=== PATIENT | female | born 1980 | race Caucasian/White ===

== ENCOUNTER 2019-01-31 20:13 | Observation (INO) | payer BC ==
[~2019-01-31] VITALS: Ht 160 cm; Wt 97.1 kg
[~2019-01-31 20:13] MED LIST: ANUCORT HC25 MG REC; DARVOCET-N-101 UDTAB PO; LORTAB 5/500 501 TAB PO; NO HOME MEDICATIONS
[2019-01-31 20:47] LABS: BASO % 0.5 % (0.0-2.0); EOS # 0.1 (0.0-0.7); EOS % 2.1 % (0-4.0); GRAN # 3.4 (1.4-6.5); GRAN % 53.5 % (42.2-75.2); HEMOGLOBIN 14.3 g/dl (12.5-16.0); LYMPH # 2.3 (1.2-3.4); LYMPH % 36.7 % (20.0-51.0); MEAN CELL VOLUME 85 fl (80.0-100.0); MEAN CORPUSCULAR HEMOGLOBIN 28 pg (27.0-31.0); MEAN CORPUSCULAR HGB CONC 33 g/dl (33.0-37.0); MEAN PLATELET VOLUME 10.6 fl (7.4-10.4); MONO # 0.4 (0.1-0.6); PLATELET COUNT 214 K/mm3 (130-400); RED BLOOD COUNT 5.07 M/mm3 (4.10-5.30); REDCELL DISTRIBUTION WIDTH-CV 12.4 % (11.5-14.5)
[2019-01-31 20:53] LABS: ALANINE AMINOTRANSFERASE 35 U/L (9-52); ALBUMIN 4.2 gm/dL (3.5-5.0); ALKALINE PHOSPHATASE 85 U/L (50-136); ANION GAP 9 mmol/L (7-16); AST,SGOT 28 U/L (15-37); BILIRUBIN,TOTAL 0.2 mg/dL (0.0-1.0); BLOOD UREA NITROGEN 16 mg/dL (7-17); CALCIUM 9.1 mg/dL (8.4-10.2); CARBON DIOXIDE 24 mmol/L (22-30); CHLORIDE 106 mmol/L (98-107); CREATININE, serum 0.56 mg/dL (0.52-1.25); GLUCOSE 150 mg/dL (74-106); LIPASE 252 U/L (23-300); POTASSIUM 4.2 mmol/L (3.4-5.0); SODIUM 139 mmol/L (137-145); TOTAL PROTEIN 7.6 gm/dL (6.4-8.2)
[2019-01-31 21:05] LABS: TROPONIN-I < 0.012 ng/mL (0.000-0.035)
[2019-01-31 22:28] LABS: INR 0.8 (0.8-3.0); PROTHROMBIN TIME 9.6 SECONDS (9.7-12.8)
[2019-01-31 22:31] LABS: PARTIAL THROMBOPLASTIN TIME 29.9 SECONDS (26.0-37.0)
[2019-02-01] VITALS (711 sets, daily range): BP systolic 104–131; BP diastolic 59–93; PULSE 65–80; TEMP 97.7–97.9; O2SAT 89–99
[2019-02-01] MEDS ORDERED: FORT1000TA PO (01:24)
[2019-02-01] MEDS ORDERED: NOVOLOG 100U100 U/M1 SQ (01:25)
[2019-02-01] MEDS ORDERED: LANTUS100 U/ML SQ (01:26)
[2019-02-01] MEDS ORDERED: LIPITOR 10MG10 MG PO (01:26)
[2019-02-01] MEDS ORDERED: NEURONTIN300 MG/CAP PO (01:27)
[2019-02-01] MEDS ORDERED: JANUVIA 100MG100 MG PO (01:28)
[2019-02-01] MEDS ORDERED: PRINIVIL5 MG PO (01:29)
[2019-02-01 02:31] LABS: CHOLESTEROL 181 mg/dL (120-200); CHOLESTEROL RISK RATIO 6.4; HDL CHOLESTEROL 28 mg/dL; LDL CHOLESTEROL 117 mg/dL; MAGNESIUM 1.8 mg/dL (1.6-2.3); TRIGLYCERIDE 178 mg/dL
[2019-02-01 02:46] LABS: TROPONIN-I < 0.012 ng/mL (0.000-0.035)
[2019-02-01 02:53] LABS: COLLECTION METHOD CLEAN CATCH
[2019-02-01 03:11] LABS: MUCOUS Present /lpf; PH 5 (5-8); URINE APPEARANCE Clear; URINE BACTERIA None Seen /hpf; URINE BILIRUBIN Negative (NEGATIVE); URINE BLOOD Negative (NEGATIVE); URINE COLOR Yellow; URINE GLUCOSE 1+ (NEGATIVE); URINE KETONE Negative (NEGATIVE); URINE LEUKOCYTE ESTERASE Negative (NEGATIVE); URINE NITRATE Negative (NEGATIVE); URINE PROTEIN(semi-quant) Negative (NEGATIVE); URINE RBC 0-2 /hpf
[2019-02-01 06:08] LABS: BASO % 0.6 % (0.0-2.0); EOS # 0.1 (0.0-0.7); EOS % 2.3 % (0-4.0); GRAN # 2.1 (1.4-6.5); GRAN % 39.1 % (42.2-75.2); HEMATOCRIT 38.3 % (37.0-47.0); HEMOGLOBIN 12.5 g/dl (12.5-16.0); LYMPH # 2.7 (1.2-3.4); LYMPH % 51.1 % (20.0-51.0); MEAN CELL VOLUME 86 fl (80.0-100.0); MEAN CORPUSCULAR HEMOGLOBIN 28 pg (27.0-31.0); MEAN CORPUSCULAR HGB CONC 33 g/dl (33.0-37.0); MEAN PLATELET VOLUME 10.8 fl (7.4-10.4); MONO # 0.4 (0.1-0.6); MONO % 6.7 % (1.7-9.3); PLATELET COUNT 183 K/mm3 (130-400); RED BLOOD COUNT 4.44 M/mm3 (4.10-5.30); REDCELL DISTRIBUTION WIDTH-CV 12.5 % (11.5-14.5)
[2019-02-01 07:01] LABS: CALCIUM 8.3 mg/dL (8.4-10.2); CREATININE, serum 0.49 mg/dL (0.52-1.25); POTASSIUM 3.7 mmol/L (3.4-5.0)
--- NOTE | 2019-02-01 07:15 | NUR ---
Bedside report received from JENNIFER Wang. Care of patient assumed at this time.
--- NOTE | 2019-02-01 07:55 | NUR ---
Patient assessment complete. Patient resting in bed, sleeping when this nurse enters room. Upon waking patient states she isn't having chest pain, but some "tightness." Nitro drip at 5 mcg/min, this nurse increases rate to 10 mcg/min based on patient report of pain at 5/10. Patient is alert and oriented after waking, denies any shortness of breath. Tech at bedside to complete echo. Will continue to monitor.
--- NOTE | 2019-02-01 12:09 | NUR ---
Patient taken to stress test by wheelchair.
--- NOTE | 2019-02-01 13:17 | NUR ---
Patient returns from stress test.
--- NOTE | 2019-02-01 13:20 | NUR ---
Patient resting in bed. Denies chest pain or shortness of breath. States she is not hungry. No concerns at this time.
[2019-02-01] MEDS ORDERED: NAPROXEN 3375 MG/TAB PO (15:05)
--- NOTE | 2019-02-01 16:39 | NUR ---
PREETI lam met with the patient to discuss discharge plan. The patient lives alone in [place] but states her brother lives nearby. The patient does not use any DME and reports independence with ADLs. The patient receives primary care services from [facility] and receives her medications from the [facility]. The patient states that she sometimes has difficulties affording her medications but receieves assistance through the [facility]. The patient did not have a DPOA-HC completed but was interested in completing one while at the hospital. PREETI lam presented and explained the DPOA-HC. PREETI lam and RN, Carmen, witnessed the patient sign. The patient designates her brother, Ashkan. PREETI lam put a copy in the patient's chart and gave the original and 3 copies to the patient. No additional needs at this time. The patient is to discharge today, 02/01, back home in [place].
--- NOTE | 2019-02-01 16:45 | NUR ---
Discharge information reviewed with patient. Patient verbalizes understanding and agreement. All patient questions asked and answered to satisfaction. Patient denies shortness of breath or chest pain. No concerns at this time. All patient belongings transported with patient. Patient taken by wheelchair to exit at this time.
== END 2019-02-01 16:53 | disposition home or self-care (01) ==
LOC: COL.ER 20:13 → ICU 22:19
PROVIDERS: Emergency Medicine; Nurse Practitioner Family
DX: R07.89 Other chest pain (principal); E78.5 Hyperlipidemia, unspecified; I10 Essential (primary) hypertension; E11.40 Type 2 diabetes mellitus with diabetic neuropathy, unspecified; E66.9 Obesity, unspecified; G47.33 Obstructive sleep apnea (adult) (pediatric); Z90.49 Acquired absence of other specified parts of digestive tract; Z98.84 Bariatric surgery status; Z79.4 Long term (current) use of insulin; Z87.891 Personal history of nicotine dependence; Z82.49 Family history of ischemic heart disease and other diseases of the circulatory system; Z83.3 Family history of diabetes mellitus; Z88.1 Allergy status to other antibiotic agents; Z88.5 Allergy status to narcotic agent; Z88.6 Allergy status to analgesic agent; Z91.040 Latex allergy status; Z79.82 Long term (current) use of aspirin
CPT/HCPCS: A9500; G0378; J1644; J1650; J7030; Q9967

== ENCOUNTER 2019-07-20 17:58 | Inpatient (IN) | payer BC ==
[~2019-07-20] VITALS: Ht 160 cm; Wt 101.5 kg
[~2019-07-20 17:58] MED LIST changes: +FORT1000TA PO; +JANUVIA 100MG100 MG PO; +LANTUS100 U/ML SQ; +LIPITOR 10MG10 MG PO; +NAPROXEN 3375 MG/TAB PO; +NEURONTIN300 MG/CAP PO; +NOVOLOG 100U100 U/M1 SQ; +PRINIVIL5 MG PO
[2019-07-20 18:35] LABS: BASO % 0.5 % (0.0-2.0); EOS # 0.1 (0.0-0.7); EOS % 1.2 % (0-4.0); GRAN # 3.7 (1.4-6.5); HEMATOCRIT 41.9 % (37.0-47.0); HEMOGLOBIN 13.9 g/dl (12.5-16.0); LYMPH # 2.3 (1.2-3.4); LYMPH % 35.3 % (20.0-51.0); MEAN CELL VOLUME 84 fl (80.0-100.0); MEAN CORPUSCULAR HEMOGLOBIN 28 pg (27.0-31.0); MEAN CORPUSCULAR HGB CONC 33 g/dl (33.0-37.0); MEAN PLATELET VOLUME 10.7 fl (7.4-10.4); MONO # 0.4 (0.1-0.6); MONO % 5.7 % (1.7-9.3); PLATELET COUNT 235 K/mm3 (130-400); RED BLOOD COUNT 5.01 M/mm3 (4.10-5.30)
[2019-07-20 18:47] LABS: ALANINE AMINOTRANSFERASE 36 U/L (9-52); ALBUMIN 4.5 gm/dL (3.5-5.0); ALKALINE PHOSPHATASE 103 U/L (50-136); ANION GAP 14 mmol/L (7-16); AST,SGOT 37 U/L (15-37); BILIRUBIN,TOTAL 0.6 mg/dL (0.0-1.0); BLOOD UREA NITROGEN 10 mg/dL (7-17); CALCIUM 9.1 mg/dL (8.4-10.2); CARBON DIOXIDE 22 mmol/L (22-30); CHLORIDE 105 mmol/L (98-107); CREATININE, serum 0.42 (0.52-1.25); GLUCOSE 160 mg/dL (74-106); POTASSIUM 3.7 mmol/L (3.4-5.0); SODIUM 141 mmol/L (137-145); TOTAL PROTEIN 7.8 gm/dL (6.4-8.2)
[2019-07-20 19:03] LABS: TROPONIN-I < 0.012 ng/mL (0.000-0.035)
[2019-07-20] MEDS ORDERED: IMDUR 30MG30 MG/TAB PO (20:58)
[2019-07-20] MEDS ORDERED: ASPIRIN 81M81 MG/TA2 PO (21:38)
[2019-07-20] MEDS ORDERED: GLUCOPHAGE1000 MG PO (21:40)
[2019-07-20 22:09] VITALS: BP 124/90; PULSE 72; TEMP 97.5
[2019-07-20 22:15] VITALS: BP 124/90; PULSE 76; TEMP 97.5
[2019-07-21] VITALS (13 sets, daily range): BP systolic 97–135; BP diastolic 61–89; PULSE 67–85; TEMP 97.7–98.5
--- NOTE | 2019-07-21 00:07 | NUR ---
Admiyyed to medical floor from ER- VSS, states no chest pain at this time- IV fluids at 125cc/hr, NPO after MN for ? heart cath in am
--- NOTE | 2019-07-21 05:41 | NUR ---
Quiet night- no chest pain, VSS
[2019-07-21 06:12] LABS: BASO % 0.7 % (0.0-2.0); EOS # 0.1 (0.0-0.7); GRAN # 2.4 (1.4-6.5); GRAN % 53.3 % (42.2-75.2); HEMATOCRIT 38.9 % (37.0-47.0); HEMOGLOBIN 12.7 g/dl (12.5-16.0); LYMPH # 1.6 (1.2-3.4); LYMPH % 35.8 % (20.0-51.0); MEAN CELL VOLUME 85 fl (80.0-100.0); MEAN CORPUSCULAR HEMOGLOBIN 28 pg (27.0-31.0); MEAN CORPUSCULAR HGB CONC 33 g/dl (33.0-37.0); MEAN PLATELET VOLUME 10.8 fl (7.4-10.4); MONO # 0.4 (0.1-0.6); PLATELET COUNT 196 K/mm3 (130-400); RED BLOOD COUNT 4.59 M/mm3 (4.10-5.30)
[2019-07-21 06:23] LABS: CALCIUM 8.4 mg/dL (8.4-10.2); CHOLESTEROL RISK RATIO 8.8; CREATININE, serum 0.36 (0.52-1.25); POTASSIUM 3.6 mmol/L (3.4-5.0)
--- NOTE | 2019-07-21 08:00 | NUR ---
PATIENT IS RESTING IN BED THIS MORNING. PATIENT IS A&OX4. VSS. TELE IN PLACE. BOWEL SOUNDS ACTIVE ALL FOUR QUADRANTS. PATIENT IS NPO FOR A PROCEDURE. PATIENT DENIES COMPLAINTS OF N/V. POSITIVE PEDAL PULSES EQUAL BILATERALLY. IV FLUIDS INFUSING TO RIGHT HAND IV VIA PUMP. PATIENT DENIES ANY PAIN. CALL LIGHT WITHIN REACH. NO OTHER NEEDS AT THIS TIME.
--- NOTE | 2019-07-21 11:50 | NUR ---
PATIENT CONSENT FOR CARDIAC CATH PROCEDURE SIGNED AND ON PATIENT CHART.
--- NOTE | 2019-07-21 12:30 | NUR ---
PATIENT TAKEN TO POWDER LINE REPAIRER VIA BED. WILL WAIT FOR PATIENT ARRIVAL BACK TO ROOM 311.
--- NOTE | 2019-07-21 12:49 | NUR ---
SEE MERGE DOCUMENTATION FOR MEDICATION ADMINISTRATION TIMES AND INTRA/POST PROCEDURE SEDATION ASSESSMENTS.
--- NOTE | 2019-07-21 13:50 | NUR ---
PATIENT ARRIVED BACK TO ROOM 311 VIA BED FROM CARDIAC CATH. PATIENT IS A&OX4. POST-OP VSS. RIGHT RADIAL TR BAND AND IMMOBILIZER IN PLACE. RIGHT RADIAL PUNCTURE SITE BENEATH TR BAND DRESSING IS CD&I. POSITIVE RADIAL PULSES EQUAL BILATERALLY. PATIENT ON BEDREST. PATIENT DENIES ANY NEEDS AT THIS TIME.
--- NOTE | 2019-07-21 14:35 | NUR ---
PATIENT'S RIGHT HAND TO INT. POST-OP VSS. PATIENT'S BEDREST TIME COMPLETE. PATIENT ASSISTED TO THE BATHROOM. PATIENT STEADY ON FEET. PATIENT DENIES ANY OTHER NEEDS AT THIS TIME.
--- NOTE | 2019-07-21 15:35 | NUR ---
3 MLS OF AIR RELEASED FROM TR BAND. NO BLEEDING AT PUNCTURE SITE. WILL CONTINUE TO MONITOR.
--- NOTE | 2019-07-21 16:05 | NUR ---
5 MLS OF AIR RELEASED FROM TR BAND. NO BLEEDING AT PUNCTURE SITE. WILL CONTINUE TO MONITOR.
--- NOTE | 2019-07-21 16:35 | NUR ---
REMAINING 5 MLS OF AIR RELEASED FROM TR BAND. NO BLEEDING AT PUNCTURE SITE. WILL CONTINUE TO MONITOR.
--- NOTE | 2019-07-21 16:43 | NUR ---
SW attended clinical rounds to discuss discharge planning. Patient will likely discharge later this afternoon. Patient lives independently at home alone and work as an credit assistant to [employer]. Patient reports she has family support from her brother and sister. Patient receives primary care from the [facility] in . Patient reports she obtains medications from [facility] as well as [facility]. Patient denies difficulties obtaining medications. Patient's DPOA is her brother and copy is in the EMR. No discharge needs at this time.
--- NOTE | 2019-07-21 17:35 | NUR ---
PATIENT IS EATING, DRINKING AND VOIDING. POST-OP VITAL SIGNS STABLE. PATIENT'S RIGHT HAND INT DISCONTINUED PER PENDING DISCHARGE. TIP INTACT. PATIENT TOLERATED WELL. TR BAND REMOVED. BANDAID IN PLACE. WRIST IMMOBILIZER IN PLACE.
--- NOTE | 2019-07-21 18:35 | NUR ---
DISCHARGE INSTRUCTIONS REVIEWED WITH PATIENT AND . ALL QUESTIONS ANSWERED. PATIENT PERSONAL BELONGINGS GATHERED. PATIENT AMBULATED TO PERSONAL VEHICLE WITH MEDICAL STAFF. PATIENT DISCHARGED.
== END 2019-07-21 18:35 | disposition home or self-care (01) | DRG 287 ==
LOC: COL.ER 17:58 → MEDICAL 20:00
PROVIDERS: Emergency Medicine; ADMIT Hospitalist
PROC: 4A023N7 Measurement of Cardiac Sampling and Pressure, Left Heart, Percutaneous Approach (ICD-10-PCS; principal; 2019-07-21)
PROC: B2111ZZ Fluoroscopy of Multiple Coronary Arteries using Low Osmolar Contrast (ICD-10-PCS; 2019-07-21)
PROC: B2151ZZ Fluoroscopy of Left Heart using Low Osmolar Contrast (ICD-10-PCS; 2019-07-21)
DX: I25.119 Atherosclerotic heart disease of native coronary artery with unspecified angina pectoris (principal); E11.40 Type 2 diabetes mellitus with diabetic neuropathy, unspecified; I10 Essential (primary) hypertension; E78.5 Hyperlipidemia, unspecified; Z88.5 Allergy status to narcotic agent; Z88.6 Allergy status to analgesic agent; Z88.1 Allergy status to other antibiotic agents; Z91.040 Latex allergy status; E66.9 Obesity, unspecified; Z68.39 Body mass index [BMI] 39.0-39.9, adult; Z98.84 Bariatric surgery status; Z87.891 Personal history of nicotine dependence; G47.33 Obstructive sleep apnea (adult) (pediatric)
CPT/HCPCS: G0378; J1644; J2250; J7030; Q9967

== ENCOUNTER → 2019-09-20 | Outpatient (CLI) | payer BC ==
[~2019-09-20] MED LIST changes: +ASPIRIN 81M81 MG/TA2 PO; +GLUCOPHAGE1000 MG PO; +IMDUR 30MG30 MG/TAB PO
== END ==
LOC: COL.RAD 09:37
DX: R10.2 Pelvic and perineal pain (principal)

== ENCOUNTER → 2019-10-27 | Outpatient (CLI) | payer BC | LOC: COL.RAD 16:49 | DX: Z01.818 Encounter for other preprocedural examination (principal) ==

== ENCOUNTER → 2020-03-13 | Outpatient (CLI) | payer BC | LOC: ZCOL.LAB 10:38 | DX: Z20.828 Contact with and (suspected) exposure to other viral communicable diseases (principal) ==

== ENCOUNTER → 2020-07-08 | Outpatient (CLI) | payer BC | LOC: MC.RAD 06-27 13:15 | DX: Z12.31 Encounter for screening mammogram for malignant neoplasm of breast (principal) ==

== ENCOUNTER → 2020-08-08 | Outpatient (CLI) | payer BC | LOC: COL.RAD 08:05 | DX: Z01.812 Encounter for preprocedural laboratory examination (principal); R90.82 White matter disease, unspecified; R51 Headache; R20.0 Anesthesia of skin | CPT/HCPCS: A9585 ==

== ENCOUNTER 2020-08-21 08:03 | Outpatient (CLI) | payer BC ==
[~2020-08-21] VITALS: Ht 160 cm; Wt 88.7 kg
[~2020-08-21 08:03] MED LIST changes: +CRESTOR40 MG PO; +NITROSTAT0.4 MG/TAB SL; +OZEMPIC0.25 MG/0. SQ
[2020-08-21 08:08] VITALS: BP 132/81; PULSE 90
[2020-08-21 09:22] VITALS: BP 117/75; PULSE 69
[2020-08-21 09:45] VITALS: BP 118/83; PULSE 75
[2020-08-21 09:55] LABS: GLUCOSE,CSF 75 mg/dL (40-70); TOTAL PROTEIN,CSF 67 mg/dL (15-45)
[2020-08-21 10:00] VITALS: BP 109/64; PULSE 74
[2020-08-21 10:06] LABS: CSF APPEARANCE CLEAR; CSF COLOR COLORLESS; CSF MONONUCLEAR 100 % (70-100); CSF POLYMORPHONUCLEAR 0 % (0-6); CSF RBC 3 /mm3 (0-0)
[2020-08-21 10:15] VITALS: BP 106/67; PULSE 81
[2020-08-21 10:30] VITALS: BP 112/78; PULSE 66
[2020-08-26 12:52] LABS: ALBUMIN CSF 40.4 mg/dL (<=27.0)
[2020-08-26 12:55] LABS: CSF,IGG 4.2 mg/dL (<=8.1)
[2020-08-26 13:23] LABS: ALBUMUN SERUM 4200 mg/dL (()); CSF-IGG INDEX 0.42 (<=0.85); IGG,SERUM 992 mg/dL (()); IGG/ALBUMIN SERUM 0.24 (<=0.40)
[2020-08-26 14:32] LABS: CSF OLIG BD INTERPRETATION 3 bands (<2); CSF OLIGOCLONAL BANDING 3 bands (()); SE OLIGOCLONAL BANDING 0 bands (())
== END 2020-08-21 10:40 | disposition home or self-care (01) ==
LOC: COL.RAD 08:03
PROVIDERS: Psychiatry & Neurology Neurology
DX: G37.9 Demyelinating disease of central nervous system, unspecified (principal); R90.82 White matter disease, unspecified

== ENCOUNTER → 2020-09-19 | Outpatient (CLI) | payer BC | LOC: COL.RAD 09:51 | DX: G35 Multiple sclerosis (principal) | CPT/HCPCS: A9585 ==

== ENCOUNTER 2020-10-25 07:51 | Day surgery (SDC) | payer BC ==
[~2020-10-25] VITALS: Ht 159.4 cm; Wt 87.1 kg
[2020-10-25 08:08] VITALS: BP 117/79; PULSE 70; TEMP 97.4
[2020-10-25] MEDS ORDERED: JARDIANCE10 PO (08:16)
[2020-10-25] MEDS ORDERED: NOVOLOG 100U100 U/M1 SQ (08:19)
[2020-10-25] MEDS ORDERED: PROTONIX 40MG T40 MG PO (08:21)
[2020-10-25 09:25] VITALS: BP 105/77; PULSE 76; TEMP 97.6
--- NOTE | 2020-10-25 09:25 | NUR ---
Pt to GI bay 5 via cart from ENDO. Pt drowsy, but awakens easily. Pt denies pain or nausea. Pt ambulates to recliner with stand by assistance. Warm blanket given. Will continue to monitor. Pt denies need for drink/food. Call light within reach.
[2020-10-25 09:40] VITALS: BP 90/42; PULSE 68
--- NOTE | 2020-10-25 09:40 | NUR ---
into see pt. Pt taking sips of water without difficulties. Will continue to monitor. Call light within reach.
[2020-10-25 09:41] VITALS: TEMP 97.5
[2020-10-25 09:55] VITALS: BP 109/78; PULSE 65
--- NOTE | 2020-10-25 09:55 | NUR ---
Pt continues to rest. Denies needs. Call light within reach.
--- NOTE | 2020-10-25 10:10 | NUR ---
Discharge instructions reviewed. Pt voices understanding. IV site discontinued with all parts intact. Pt up to dress. Call light within reach.
--- NOTE | 2020-10-25 10:22 | NUR ---
Pt escorted to private car via wheel chair. Pt accompanied home by her friend.
== END 2020-10-25 10:24 | disposition home or self-care (01) ==
LOC: SDCO 07:51
DX: K22.2 Esophageal obstruction (principal); K21.00 Gastro-esophageal reflux disease with esophagitis, without bleeding; R07.9 Chest pain, unspecified; E11.40 Type 2 diabetes mellitus with diabetic neuropathy, unspecified; I10 Essential (primary) hypertension; G47.30 Sleep apnea, unspecified; E78.00 Pure hypercholesterolemia, unspecified; I25.10 Atherosclerotic heart disease of native coronary artery without angina pectoris; Z20.828 Contact with and (suspected) exposure to other viral communicable diseases; Z98.84 Bariatric surgery status; Z88.5 Allergy status to narcotic agent; Z88.8 Allergy status to other drugs, medicaments and biological substances; Z88.1 Allergy status to other antibiotic agents; Z91.040 Latex allergy status; Z79.82 Long term (current) use of aspirin; Z79.4 Long term (current) use of insulin; Z87.891 Personal history of nicotine dependence
CPT/HCPCS: J0585; J2704; J7030